=== PATIENT | female | born 1970 ===

== ENCOUNTER 2021-04-11 15:01 | Emergency (ER) | payer OTHER, SELFPAY ==
[2021-04-11 15:07] VITALS: BP 113/66; PULSE 59; RESP 16; TEMP 36.4; O2SAT 100
--- NOTE | 2021-04-11 15:15 | DI.RAD_ITS ---
Exam(s) XR WRIST LT COMPLETE EXAM: XR WRIST LT COMPLETE CLINICAL HISTORY: fall. TECHNIQUE: 2D digital imaging was performed. COMPARISON: No exams were available for comparison FINDINGS: Three views the left wrist reveal no evidence of fracture or dislocation. Scaphoid unremarkable. No significant ulnar variance. IMPRESSION: No fracture. DATA REPOSITORY: RADIATION DOSE DELIVERED:
--- NOTE | 2021-04-11 15:15 | DI.RAD_ITS ---
Exam(s) XR FOREARM LT EXAM: XR FOREARM LT CLINICAL HISTORY: fall/pain. TECHNIQUE: 2D digital imaging was performed. COMPARISON: No exams were available for comparison FINDINGS: No evidence of fracture or dislocation. No elbow joint effusion. No swelling of the olecranon bursa . Bone density is normal. No osseous lesions. IMPRESSION: No significant findings. DATA REPOSITORY: RADIATION DOSE DELIVERED:
--- NOTE | 2021-04-11 15:21 | ED.GENADUL_ITS ---
Discharge Plan Disposition Patient Disposition: HOME Condition: Stable Discharge Details Clinical Impression: Left wrist sprain Primary Care Provider: Unknown,Unknown ED Provider: Chelsea Sinclair Home Meds and New Rx's Prescriptions: No Action No Known Home Meds 0RF Discharge Instructions Instructions: Wrist Sprain (ED) Additional Instructions: The x-rays show no evidence of broken bone or fracture. Please wear the splint as needed for comfort. Rest, ice, compression, elevation. Please take Tylenol or Ibuprofen with food every 4-6 hours as needed for pain and swelling. Follow up with primary care provider in 3-5 days. Return to ED sooner if any worsening or concerns. Increase oral fluids. Discharge Data Discharge Date/Time-TO BE ENTERED AT DEPARTURE: 04/11/21 17:07 Medical Decision Making <LEXIE Devi - Last Filed: 04/12/21 08:14> 51-year-old female, [id number], presents status post mechanical slip and fall injuring her left wrist and forearm. No other injuries. Plan is to obtain x-ray of her forearm and wrist and then reassess. Patient comfortable with this plan and has no additional questions or concerns. Neuro, vascular, tendon intact. SJ: 1626: Care assumed from provider (LEXIE Barron) Please see their initial HPI, PE, and documentation. Discussed patient details and case and pending workup and disposition. Patient is hemodynamically stable, and alert and oriented. At the time of signout we are awaiting the x-ray results which is noted below. Forearm x-ray also within normal limits. EXAM:? XR WRIST LT COMPLETE CLINICAL HISTORY: ? fall. ? TECHNIQUE:? 2D digital imaging was performed. COMPARISON:? No exams were available for comparison FINDINGS: Three views the left wrist reveal no evidence of fracture or dislocation.? Scaphoid unremarkable.? No significant ulnar variance. IMPRESSION: No fracture. Patient placed in a universal wrist splint and given instructions for rest ice compression elevation, home care and follow-up with Ortho if needed. This text was generated using Xercise4lessation system, please disregard any oddities of phrase or misspellings. <Chelsea Sinclair - Last Filed: 04/11/21 21:29> SJ: 1626: Care assumed from provider (LEXIE Barron) Please see their initial HPI, PE, and documentation. Discussed patient details and case and pending workup and disposition. Patient is hemodynamically stable, and alert and oriented. At the time of signout we are awaiting the x-ray results which is noted below. Forearm x-ray also within normal limits. EXAM:? XR WRIST LT COMPLETE CLINICAL HISTORY: ? fall. ? TECHNIQUE:? 2D digital imaging was performed. COMPARISON:? No exams were available for comparison FINDINGS: Three views the left wrist reveal no evidence of fracture or dislocation.? S caphoid unremarkable.? No significant ulnar variance. IMPRESSION: No fracture. Patient placed in a universal wrist splint and given instructions for rest ice compression elevation, home care and follow-up with Ortho if needed. This text was generated using [email or web address] system, please disregard any oddities of phrase or misspellings. HPI <LEXIE Devi - Last Filed: 04/12/21 08:14> General Mode of arrival: ambulatory . Date/Time Provider Initiated Documentation: 04/11/21 15:13 . Limitations to Documentation: no limitations . Information obtained by: patient . History of Present Illness 51 year old F presents to the emergency department with the chief complaint of Left arm pain, described as moderate, with intensity rated at 4. Quality is described as aching, and is localized to the left and upper extremity. Patient reports no radiation. Patient started experiencing this hour(s) (1) and it has been constant. improves with Immobilization improves symptom(s), Movement worsens symptoms . Patient notes no other symptoms.. Patient did receive the following treatments prior to arrival, none Related Data Home Medications Medication Instructions Recorded Confirmed Unknown [No Known Home Meds] 04/11/21 04/11/21 Allergies Allergy/AdvReac Type Severity Reaction Status Date / Time No Known Allergies Allergy Unverified 04/11/21 15:13 General Stated Complaint: Orthopedic TAVARES: 4 Review of Systems <LEXIE Devi - Last Filed: 04/12/21 08:14> Constitutional Constitutional: Denies headache(s) ENT Ears, Nose, Mouth, and Throat: Denies headache(s) Cardiovascular Cardiovascular: Denies chest pain Gastrointestinal Gastrointestinal: Denies abdominal pain, Denies nausea and Denies vomiting Musculoskeletal Musculoskeletal: Denies deformity, Denies arthralgias, Denies numbness, Reports stiffness and Denies tingling Integumentary/Breasts Skin/Breast: Denies erythema Neurologic Neurologic: Denies headache(s), Denies numbness and Denies tingling PFSH <LEXIE Devi - Last Filed: 04/12/21 08:14> All Active Problems (Updated 04/11/21 @ 16:29 by Chelsea Sinclair) Left wrist sprain (Acute) Social History Smoking/Tobacco Use Status: Never Smoking risk assessment performed?: Yes Alcohol Intake: current Alcohol Intake frequency: 0-2 drinks per day Drug use: Never Substance use type: does not use Do you feel safe at home: Yes Do you feel safe in your relationship?: Yes Exam <LEXIE Devi - Last Filed: 04/12/21 08:14> Const General: cooperative, healthy appearing, comfortable and no acute distress Orientation: alert and awake HENWV Head: normal to inspection, normocephalic and atraumatic Eyes Conjunctivae: conjunctivae normal Neck Neck: normal visual inspection, trachea midline and supple Resp Effort & Inspection: normal respiratory effort and able to speak in complete sentences Cardio Rate: regular rate Rhythm: regular rhythm Skin General skin exam: no rashes or lesions noted Neuro General: patient alert, patient awake, moves all extremities and no focal motor deficits Sensory Exam: no sensory deficits noted Extrem General: full ROM and capillary refill normal Other: Left arm normal inspection, full range of motion, normal radial pulse and capillary refill. There is diffuse forearm discomfort worse with pronation, and with palpation of the distal forearm, proximal wrist. There is no obvious deformity, swelling or ecchymosis. Skin is intact. Psych Appearance: grossly normal Mental Status: mental status grossly normal Course <LEXIE Devi - Last Filed: 04/12/21 08:14> Vital Signs Vital signs: Vital Signs Temperature 36.4 C L 04/11/21 15:07 Pulse 59 L 04/11/21 15:07 Respiratory Rate 16 04/11/21 15:07 Blood Pressure 113/66 04/11/21 15:07 Pulse Oximetry 100 04/11/21 15:07 Temperature 36.4 C L 04/11/21 15:07 Temperature Source Temporal Artery Scan 04/11/21 15:07 Pulse 59 L 04/11/21 15:07 Respiratory Rate 16 04/11/21 15:07 Respiratory Effort Non-Labored 04/11/21 15:12 Blood Pressure 113/66 04/11/21 15:07 Blood Pressure Position Sitting 04/11/21 15:07 Pulse Oximetry 100 04/11/21 15:07 Oxygen Delivery Method Room Air 04/11/21 15:07 Oxygen Flow Rate 0 04/11/21 15:07 Pain Level 1 04/11/21 15:16 Sign Out <LEXIE Devi - Last Filed: 04/12/21 08:14> Sign Out Data: Sign Out Comment: x ray pending Last updated by Mathieu Ferrer PA at 04/11/21 16:04 PAWSS <LEXIE Devi - Last Filed: 04/12/21 08:14> Have you Been Recently Intoxicated or Drunk Within the Last 30 days?: No Have you Ever Experienced Previous Episodes of Alcohol Withdrawal?: No Have you ever Experienced Withdrawal Seizures?: No Have you ever Experienced Delirium Tremens(DT)s?: No Have you ever undergone Alcohol Rehabilitation Treatment (i.e, inpt ot outpatient treatment programs)?: No Have you ever Experienced Blackouts?: No Have you ever Combined Alcohol with other Downers within the last 90 days?: No Have you ever Combined Alcohol with any other Substance of Abuse during the last 90 days?: No Positive Blood Alcohol level on Presentation? [PCS.BAL]: No Evidence of Increased Autonomic Activity (i.e. HR>120, tremor, sweating, agitation, nausea)?: No Result: 0 <Chelsea Sinclair - Last Filed: 04/11/21 21:29> Result: 0
--- NOTE | 2021-04-11 16:26 | DI.VRAD_ITS ---
PROCEDURE INFORMATION: Exam: XR Left Wrist Exam date and time: 04/11/2021 3:20 PM Age: 51 years old Clinical indication: Other: Fall TECHNIQUE: Imaging protocol: XR Left wrist. Views: 3 or more views. COMPARISON: No relevant images were readily available for comparison purposes. FINDINGS: Bones/joints: No acute fracture or dislocation. Soft tissues: Unremarkable. IMPRESSION: No acute fracture or dislocation. Dictated and Authenticated by: Kel Pressley MD. Ordering:MORE Murdock MD
--- NOTE | 2021-04-11 16:26 | DI.VRAD_ITS ---
PROCEDURE INFORMATION: Exam: XR Left Forearm Exam date and time: 04/11/2021 3:20 PM Age: 51 years old Clinical indication: Other: Fall/ pain TECHNIQUE: Imaging protocol: XR Left forearm. Views: 2 views. COMPARISON: CR XR WRIST LT COMPLETE 04/11/2021 3:42 PM FINDINGS: Bones/joints: No acute fracture or dislocation. Soft tissues: Unremarkable. IMPRESSION: No acute fracture or dislocation. Dictated and Authenticated by: Kel Pressley MD. Ordering:MORE Murdock MD
== END 2021-04-11 17:07 | disposition home or self-care (01) ==
PROVIDERS: Emergency Provider Registered Nurse Emergency
DX: S63.592A Other specified sprain of left wrist, initial encounter (principal); W00.0XXA Fall on same level due to ice and snow, initial encounter
CPT/HCPCS: 29125; 99284; 73090; 73110; 99283